=== PATIENT | male | born 1980 | race Caucasian/White ===

== ENCOUNTER 2017-10-03 18:19 | Emergency (ER) | payer SELFPAY, MEDICAID | END 2017-10-03 19:05 | disposition left against medical advice (07) | LOC: FTE 18:19 | DX: Z53.21 Procedure and treatment not carried out due to patient leaving prior to being seen by health care provider (principal) ==

== ENCOUNTER 2017-11-15 22:36 | Emergency (ER) | payer SELFPAY | END 2017-11-16 01:25 | disposition left against medical advice (07) | LOC: FTE 22:36 | DX: Z53.21 Procedure and treatment not carried out due to patient leaving prior to being seen by health care provider (principal) ==

== ENCOUNTER 2018-03-19 00:28 | Emergency (ER) | payer SELFPAY | END 2018-03-19 02:10 | disposition left against medical advice (07) | LOC: FTE 00:28 | DX: Z53.21 Procedure and treatment not carried out due to patient leaving prior to being seen by health care provider (principal) ==